=== PATIENT | female | born 1990 | race African-American/Black ===

== ENCOUNTER 2024-05-17 11:06 | Emergency (ER) | payer MEDICAID ==
[~2024-05-17] VITALS: Ht 157.5 cm; Wt 72.6 kg
[2024-05-17 11:08] VITALS: O2SAT 98
[2024-05-17 11:09] VITALS: BP 157/103; PULSE 92; RESP 16; TEMP 37; O2SAT 97
[2024-05-17] MEDS ORDERED: HYDROCODONE/ACETAMINOPHEN 5/325MG TABLET PO ONE (12:00)
[2024-05-17] MEDS ORDERED: IBUP-2030 MT (13:20)
[2024-05-17] MEDS ORDERED: HYDR-4001 MT (13:20)
== END 2024-05-17 16:30 | disposition home or self-care (01) ==
LOC: ER 11:06
DX: S00.83XA Contusion of other part of head, initial encounter (principal); I10 Essential (primary) hypertension; R58 Hemorrhage, not elsewhere classified; Z98.890 Other specified postprocedural states; Y08.89XA Assault by other specified means, initial encounter; Y93.89 Activity, other specified; Y92.89 Other specified places as the place of occurrence of the external cause; Y99.8 Other external cause status
CPT/HCPCS: 70486; 81025; 99284

== ENCOUNTER 2024-07-01 18:29 | Emergency (ER) | payer SELFPAY ==
[~2024-07-01] VITALS: Ht 165.1 cm; Wt 65.0 kg
[~2024-07-01 18:29] MED LIST: HYDR-4001 MT; IBUP-2030 MT
[2024-07-01 18:34] VITALS: O2SAT 98
[2024-07-01 18:45] VITALS: BP 148/110; PULSE 78; RESP 12; TEMP 36.7; O2SAT 97
== END 2024-07-01 19:26 | disposition left against medical advice (07) ==
LOC: ER 18:29
DX: R56.9 Unspecified convulsions (principal); I10 Essential (primary) hypertension; Z98.890 Other specified postprocedural states; Z53.21 Procedure and treatment not carried out due to patient leaving prior to being seen by health care provider

== ENCOUNTER 2024-09-27 14:41 | Emergency (ER) | payer MEDICAID ==
[~2024-09-27] VITALS: Ht 157.5 cm; Wt 60.0 kg
[2024-09-27 14:49] VITALS: O2SAT 98
[2024-09-27 16:01] VITALS: BP 186/108; PULSE 98; RESP 16; TEMP 36.7; O2SAT 98
== END 2024-09-27 16:18 | disposition home or self-care (01) ==
LOC: ER 14:41
DX: Z11.3 Encounter for screening for infections with a predominantly sexual mode of transmission (principal); I10 Essential (primary) hypertension
CPT/HCPCS: 93005; 99283

== ENCOUNTER 2024-10-23 15:11 | Emergency (ER) | payer MEDICAID ==
[~2024-10-23] VITALS: Ht 157.5 cm; Wt 59.0 kg
[2024-10-23 15:26] VITALS: TEMP 36.9; O2SAT 100
[2024-10-23] MEDS ORDERED: IBUP-2029 MT (20:37)
[2024-10-23 20:52] VITALS: BP 160/90; PULSE 85; RESP 20; O2SAT 100
== END 2024-10-23 20:57 | disposition home or self-care (01) ==
LOC: ER 15:11
DX: S00.83XA Contusion of other part of head, initial encounter (principal); R51.9 Headache, unspecified; I10 Essential (primary) hypertension; X58.XXXA Exposure to other specified factors, initial encounter; Y93.89 Activity, other specified; Y92.89 Other specified places as the place of occurrence of the external cause; Y99.8 Other external cause status
CPT/HCPCS: 70486; 99284

== ENCOUNTER 2025-03-09 01:42 | Emergency (ER) | payer MEDICAID ==
[~2025-03-09] VITALS: Ht 162.6 cm; Wt 62.1 kg
[~2025-03-09 01:42] MED LIST changes: +IBUP-1455 MT
[2025-03-09 01:46] VITALS: O2SAT 100
[2025-03-09 02:25] VITALS: BP 126/74; PULSE 83; RESP 17; TEMP 37.1; O2SAT 97
== END 2025-03-09 02:30 | disposition home or self-care (01) ==
LOC: ER 01:42
DX: S00.03XA Contusion of scalp, initial encounter (principal); S09.90XA Unspecified injury of head, initial encounter; I10 Essential (primary) hypertension; Z91.018 Allergy to other foods; Y04.0XXA Assault by unarmed brawl or fight, initial encounter; Y93.89 Activity, other specified; Y92.89 Other specified places as the place of occurrence of the external cause; Y99.8 Other external cause status
CPT/HCPCS: 99282

== ENCOUNTER 2025-03-20 21:51 | Emergency (ER) | payer MEDICAID ==
[~2025-03-20] VITALS: Ht 162.6 cm; Wt 59.0 kg
[2025-03-20 21:54] VITALS: TEMP 97.4; O2SAT 100
[2025-03-20 22:16] VITALS: BP 140/90; PULSE 87; RESP 20; O2SAT 99
[2025-03-20] MEDS: LEVETIRACETAM 1000MG PREMIX 100 ML IV ONE (23:11)
[2025-03-20 23:20] LABS: BASOPHILS % 2.3 % (0.0-2.0); EOSINOPHILS % 0.8 % (0.0-5.0); HEMATOCRIT. 40.3 % (36.0-48.0); HEMOGLOBIN. 13.0 g/dL (12.0-16.0); LYMPHOCYTES % 50.7 % (20.0-50.0); MEAN PLATELET VOLUME 7.0 fl (7.4-10.4); MONOCYTES % 10.9 % (2.0-8.0); NEUTROPHILS % 35.3 % (40.0-76.0); PLATELET 354 x1000/uL (130-400); RED BLOOD CELL COUNT 4.30 mill/uL (4.2-5.4); RED CELL DISTRIBUTION WIDTH 15.4 % (11.6-14.6)
[2025-03-20 23:31] LABS: HCG SCREEN NEGATIVE
[2025-03-20 23:33] LABS: CREATININE 0.9 mg/dL (0.6-1.0); UREA NITROGEN BLOOD 7 mg/dL (9-23)
[2025-03-20 23:34] LABS: PROTEIN TOTAL 8.3 g/dL (6.0-8.3)
[2025-03-20 23:35] LABS: ASPARTATE AMINOTRANSFERASE 35 IU/L (<34); BILIRUBIN DIRECT < 0.1 mg/dL (<=3.0); BILIRUBIN TOTAL 0.3 mg/dL (0.1-1.0)
[2025-03-20 23:37] LABS: ETHANOL BLOOD 300 mg/dL (<10)
== END 2025-03-21 00:24 | disposition left against medical advice (07) ==
LOC: ER 21:51 → CMPBEDREQ 03-21 07:48
DX: G40.909 Epilepsy, unspecified, not intractable, without status epilepticus (principal); I10 Essential (primary) hypertension; F10.129 Alcohol abuse with intoxication, unspecified; Z79.899 Other long term (current) drug therapy; Z98.890 Other specified postprocedural states; Z91.018 Allergy to other foods; Y90.9 Presence of alcohol in blood, level not specified
CPT/HCPCS: 80076; 80048; 80320; 84703; 85025; 36415; 71045; 70450; 93005; 96365; 99285; J1953; Z7610; A4606; G0480